=== PATIENT | male | born 1985 ===

== ENCOUNTER → 2020-08-27 08:00 | Outpatient (CLI) | payer OTHER ==
[~2020-08-27 08:00] MED LIST: GABAPENT PO; HUMLOG; HUMULIN 70100 UNIT/2
== END | disposition home or self-care (01) ==
LOC: CIR.AMB 06:53 → LAB 08:00 → CIR.AMB 09:00 → EDSTATUS 09:00
PROVIDERS: ATTEND Orthopaedic Surgery Sports Medicine
DX: Z03.818 Encounter for observation for suspected exposure to other biological agents ruled out (principal); S42.001A Fracture of unspecified part of right clavicle, initial encounter for closed fracture

== ENCOUNTER 2020-10-01 13:50 | Day surgery (SDC) | payer OTHER | END 2020-10-01 22:30 | disposition home or self-care (01) | LOC: CIR.AMB 13:50 | PROVIDERS: ATTEND Orthopaedic Surgery Sports Medicine | DX: S42.031A Displaced fracture of lateral end of right clavicle, initial encounter for closed fracture (principal); Z20.822 Contact with and (suspected) exposure to COVID-19 | CPT/HCPCS: 23515; C1776 ==